=== PATIENT | female | born 1940 | race Caucasian/White ===

== ENCOUNTER 2016-09-23 23:15 | Emergency (ER) | payer MEDICARE ==
[~2016-09-23] VITALS: Ht 160 cm; Wt 71.0 kg
[~2016-09-23 23:15] MED LIST: ALLO100T PO; BACT800T5 PO; GLIM4TAB PO; GLUCTAB PO; HYDR-2768 PO; K-TA10TA5 PO; LISI-363 PO; PRAV20 PO; PROT40TA PO
[2016-09-23 23:33] VITALS: BP 122/67; PULSE 108; RESP 18; TEMP 97.6; O2SAT 99
[2016-09-24] MEDS ORDERED: PRAV40TA2 PO (00:10)
[2016-09-24] MEDS ORDERED: K-TA10TA PO (00:10)
[2016-09-24] MEDS ORDERED: PROT40TA PO (00:10)
[2016-09-24] MEDS ORDERED: ALLO100T PO (00:10)
[2016-09-24] MEDS ORDERED: METF-382 PO (00:10)
[2016-09-24] MEDS ORDERED: LISI-515 PO (00:10)
[2016-09-24] MEDS ORDERED: GLIM4TAB PO (00:10)
[2016-09-24] MEDS ORDERED: FISHCAP4 PO (00:10)
[2016-09-24] MEDS ORDERED: BACT800T5 PO (00:33)
[2016-09-24] MEDS ORDERED: DOXY100C PO (00:33)
--- NOTE | 2016-09-24 00:34 | PD ---
HPI Chief Complaint: Skin Problem Time Seen by Provider: 00:24 Travel History International Travel<30 days: No Contact w/Intl Traveler<30days: No Traveled to known affect area: No History of Present Illness HPI The patient is a 76-year-old female that 10 days ago and got scraped when gardening on her right lower leg. Several days later she began noticing redness on her right ankle area. She is a diabetic and today her sugar was 136. She denies any fever. PFSH Past Medical History Arthritis: Yes Blood Disorders: No Depression: Yes Cancer: No Cardiovascular Problems: Yes High Cholesterol: Yes Diabetes: Yes (DM II) Diminished Hearing: No Endocrine: Yes GERD: Yes Glaucoma: No Genitourinary: No Hepatitis: Yes (HEPATITIS A) Hiatal Hernia: Yes (GERD) Hypertension: Yes Immune Disorder: No Kidney Stones: Yes Musculoskeletal: Yes Neurologic: No Psychiatric: No Reproductive: No Respiratory: No Thyroid Disease: No Menopausal: Yes Past Surgical History Abdominal Surgery: Yes (CHOLECYSTECTOMY) Cholecystectomy: Yes Gynecologic Surgery: Yes (HYSTERECTOMY) Hysterectomy: Yes (PARTIAL) Pacemaker: No Tonsillectomy: Yes Other Surgery: Yes (BILATERAL FEET SPUR REMOVAL) Social History Alcohol Use: No Tobacco Use: No Substance Use: No Allergies-Medications (Allergen,Severity, Reaction): Coded Allergies: No Known Allergies (Verified , 09/24/16) Reported Meds & Prescriptions Reported Meds & Active Scripts Active Bactrim DS (Sulfamethoxazole-Trimethoprim DS) 1 Tab Tab 1 Tab PO BID Reported Fish Oil + D3 (Fish Oil-Cholecalciferol) 1,200-1,000 Mg-Unit Cap 1 Cap PO BID Pravastatin 40 Mg Tab 60 Mg PO DAILY K-Tab (Potassium Chloride) 10 Meq Tab 10 Meq PO DAILY Protonix (Pantoprazole Sodium) 40 Mg Tab 40 Mg PO DAILY Metformin ER (Metformin HCl) 1,000 Mg Rell 1,000 Mg PO BID With evening meal Lisinopril 20 Mg Tab 20 Mg PO DAILY Glimepiride 4 Mg Tab 4 Mg PO BIDAC Allopurinol 100 Mg Tab 100 Mg PO DAILY Protonix (Pantoprazole Sodium) 40 Mg Tabdr 40 Mg PO DAILY Allopurinol 100 Mg Tab 100 Mg PO DAILY Lisinopril 20 mg (Lisinopril) 20 Mg Tab 1 Tab PO DAILY Glimepiride 4 Mg Tab 4 Mg PO BID K-Tabs (Potassium Chloride) 10 Meq Tab 10 Meq PO DAILY Pravastatin Sodium 20 Mg Tab 60 Mg PO DAILY Hctz (Hydrochlorothiazide) 25 Mg Tab 25 Mg PO DAILY Glucophage XR 24 HR (Metformin HCl) 500 Mg Tab 1,000 Mg PO BID Review of Systems Except as stated in HPI: all other systems reviewed are Neg Physical Exam Narrative GENERAL: The patient is alert, oriented 3 and moderate apparent distress with her right ankle discomfort. Her vital signs show heart rate of 108 but are otherwise normal. SKIN: Focused skin assessment warm/dry. There is a cellulitis around the right ankle about 20 x 10 cm in diameter. No abscess is seen. No lymphadenitis is noted. HEAD: Atraumatic. Normocephalic. EYES: Pupils equal and round. No scleral icterus. No injection or drainage. ENT: No nasal bleeding or discharge. Mucous membranes pink and moist. NECK: Trachea midline. No JVD. CARDIOVASCULAR: Regular rate and rhythm. No murmur appreciated. RESPIRATORY: No accessory muscle use. Clear to auscultation. Breath sounds equal bilaterally. GASTROINTESTINAL: Abdomen soft, non-tender, nondistended. Hepatic and splenic margins not palpable. MUSCULOSKELETAL: No obvious deformities. No clubbing. No cyanosis. No edema. NEUROLOGICAL: Awake and alert. No obvious cranial nerve deficits. Motor grossly within normal limits. Normal speech. PSYCHIATRIC: Appropriate mood and affect; insight and judgment normal. Data Data Last Documented VS Vital Signs Date Time Temp Pulse Resp B/P Pulse Ox O2 Delivery O2 Flow Rate FiO2 09/23/16 23:33 97.6 108 18 122/67 99 MDM Medical Decision Making Medical Screen Exam Complete: Yes Emergency Medical Condition: Yes Medical Record Reviewed: Yes Differential Diagnosis Cellulitis right lower leg, allergic reaction, contact dermatitis, necrotizing fasciitishighly unlikely Narrative Course The patient has a cellulitis right lower leg. The infectious process as far too slow and does not appear as necrotizing fasciitis. Diagnosis Primary Impression: Cellulitis of right lower leg Additional Instructions: Both antibiotics are taken one tablet twice daily for 10 days. It will take 2- 3 days for the antibiotics to start working. Elevation is extremely important, elevate the area above your heart. Follow-up with her primary care physician next week. A heating pad turned on its lowest setting and interposing a towel between your skin and the pad is also useful in bringing blood to the area. Med/Other Pt SpecificInfo: Prescription(s) given Scripts Sulfamethoxazole-Trimethoprim (Bactrim DS)800-160 Mg Tab1 Tab PO BID #20 TAB Ref 0 Prov:Haider Aaron MD 09/24/16 Doxycycline Hyclate 100 Mg [id number] Mg PO BID #20 CAP Ref 0 Prov:Haider Aaron MD 09/24/16 Disposition: 01 DISCHARGE HOME Condition: Stable Haider Aaron MD Sep 24, 2016 00:34
[2016-09-24] MEDS ORDERED: DOXYCYCLINE HYCLATE 100 MG CAP PO ONE (00:45)
[2016-09-24] MEDS ORDERED: SULFAMETHOXAZOLE-TRIMETHOPRIM DS 800-160 MG TAB PO ONE (00:45)
[2016-09-24] MEDS ORDERED: TETANUS/DIPHTHERIA TOXOID ADULT 0.5 ML VIAL IM ONE (00:45)
== END 2016-09-24 01:03 | disposition home or self-care (01) ==
LOC: PHED 23:15
DX: L03.115 Cellulitis of right lower limb (principal); E11.9 Type 2 diabetes mellitus without complications; M19.90 Unspecified osteoarthritis, unspecified site; F32.9 Major depressive disorder, single episode, unspecified; E78.00 Pure hypercholesterolemia, unspecified; K21.9 Gastro-esophageal reflux disease without esophagitis; I10 Essential (primary) hypertension; Z79.899 Other long term (current) drug therapy; Z23 Encounter for immunization
CPT/HCPCS: 90471; 90714

== ENCOUNTER → 2016-12-14 | Outpatient (CLI) | payer MEDICARE ==
[~2016-12-14] VITALS: Ht 160 cm; Wt 67.0 kg
[~2016-12-14] MED LIST changes: +BENZOCAINE 20% ORAL SPR 60 ML CAN OROPHARYNG ONE; +DOXY100C PO; +FISHCAP4 PO; +GABA300C5 PO; +HYDR-3516 PO; +HYDR25TA5 PO; +K-TA10TA PO; +LIDOCAINE HCL 2% 100 MG/5 ML SYRINGE OTHER ONE; +LISI-515 PO; +METF-382 PO; +PRAV20TA2 PO; +PRAV40TA2 PO
[2016-12-14 07:23] VITALS: BP 159/70; PULSE 98; RESP 16; TEMP 97.1; O2SAT 100
== END ==
LOC: HSDC 06:49
PROVIDERS: ATTEND Internal Medicine Gastroenterology
DX: R11.0 Nausea (principal)
CPT/HCPCS: 91010

== ENCOUNTER 2017-01-27 10:19 | Observation (INO) | payer MEDICARE ==
[~2017-01-27] VITALS: Ht 160 cm; Wt 68.0 kg
[~2017-01-27 10:19] MED LIST changes: -BENZOCAINE 20% ORAL SPR 60 ML CAN OROPHARYNG ONE; -GABA300C5 PO; -HYDR-3516 PO; -HYDR25TA5 PO; -LIDOCAINE HCL 2% 100 MG/5 ML SYRINGE OTHER ONE; -PRAV20TA2 PO
[2017-01-27] MEDS ORDERED: METOPROLOL TARTRATE 25 MG TAB PO PRN (11:15)
[2017-01-27] MEDS ORDERED: INSULIN HUMAN REGULAR 1,000 UNITS/10 ML VIAL SQ PRN (11:15)
[2017-01-27] MEDS ORDERED: POVIDONE IODINE 5% (ANTISEPSIS KIT) 4 APPLICATIONS EACH NARE PRN (11:15)
[2017-01-27] MEDS ORDERED: ACETAMINOPHEN 1000 MG/100 ML 100 ML IV SCH (11:15)
[2017-01-27] MEDS ORDERED: SODIUM CHLORID 0.9% 500 ML IV PRN (11:15)
[2017-01-27] MEDS ORDERED: CHLORHEXIDINE GLUCONATE 2 % 1 PACK (2 CLOTHS) TOPICAL PRN (11:15)
[2017-01-27] MEDS ORDERED: LACTATED RINGER'S 1000 ML IV PRN (11:15)
[2017-01-27] MEDS ORDERED: HYDR25TA5 PO (11:22)
[2017-01-27] MEDS ORDERED: PRAV20TA2 PO (11:22)
[2017-01-27] MEDS ORDERED: GABA300C5 PO (11:54)
[2017-01-27] MEDS ORDERED: NORMOSOL R INJ 1,000 ML IV ONE (12:00)
[2017-01-27] MEDS ORDERED: ESMOLOL HCL 100 MG/10 ML VIAL IV ONE (12:00)
[2017-01-27] MEDS ORDERED: DEXAMETHASONE SOD PHOS 4 MG/ML VIAL IV ONE (12:00)
[2017-01-27] MEDS ORDERED: ROCURONIUM INJ 50 MG/5 ML VIAL IV ONE (12:00)
[2017-01-27] MEDS ORDERED: SUCCINYLCHOLINE CHLORIDE 100 MG/5 ML SYRINGE IV PUSH ONE (12:00)
[2017-01-27] MEDS ORDERED: STERILE WATER FOR INJECTION 20 ML VIAL IV ONE (12:00)
[2017-01-27] MEDS ORDERED: ONDANSETRON HCL 4 MG/2 ML VIAL IV PUSH ONE (12:00)
[2017-01-27] MEDS ORDERED: PROPOFOL 200 MG/20 ML AMP IV ONE (12:00)
[2017-01-27] MEDS ORDERED: GLYCOPYRROLATE 1 MG/5 ML SYRINGE IV PUSH ONE (12:00)
[2017-01-27] MEDS ORDERED: MORPHINE SULFATE 4 MG/ML INJ IV ONE (12:00)
[2017-01-27] MEDS ORDERED: VECURONIUM BROMIDE 20 MG VIAL IV ONE (12:00)
[2017-01-27] MEDS ORDERED: NEOSTIGMINE 3 MG/3 ML SYR IV ONE (12:00)
[2017-01-27] MEDS ORDERED: PHENYLEPHRINE HCL 10 MG/ML VIAL IV ONE (12:00)
[2017-01-27] MEDS ORDERED: PHENYLEPH/NS 1000 MCG/10 ML SYR IV ONE (12:00)
[2017-01-27] MEDS ORDERED: KETOROLAC TROMETHAMINE 30 MG/ML (IVP) VIAL IV PUSH ONE (12:00)
[2017-01-27] MEDS ORDERED: MIDAZOLAM HCL 2 MG/2 ML VIAL IV ONE (12:00)
[2017-01-27] MEDS ORDERED: LACTATED RINGER'S 1000 ML INJ 1,000 ML IV ONE (12:00)
[2017-01-27] MEDS: ceFAZolin 2 GM PREMIX 50 ML IV SCH ×2 (12:37→16:34)
[2017-01-27] MEDS ORDERED: BUPIVACAINE/EPINEPHRINE 0.25% 50 ML VIAL ONE (15:02)
[2017-01-27] MEDS ORDERED: ACETAMINOPHEN 1000 MG/100 ML 100 ML IV ONE (17:49)
[2017-01-27] MEDS ORDERED: NALOXONE HCL 0.4 MG/ML AMP IV PUSH PRN (18:45)
[2017-01-27] MEDS ORDERED: ACETAMINOPHEN/HYDROcodone 325 MG/5 MG TAB PO PRN (18:45)
[2017-01-27] MEDS ORDERED: MORPHINE SULFATE 4 MG/ML INJ IV PUSH PRN (18:45)
[2017-01-27] MEDS ORDERED: diphenhydrAMINE HCL 50 MG/ML VIAL IV PUSH PRN (18:45)
[2017-01-27] MEDS ORDERED: Post-op Orders (for Pharmacy) MISC XX ONE (18:45)
[2017-01-27] MEDS ORDERED: ONDANSETRON HCL 4 MG/2 ML VIAL IV PUSH PRN (18:45)
[2017-01-27] MEDS ORDERED: SODIUM CHLORIDE 0.9% FLUSH 10 ML FLUSH IV FLUSH PRN (18:45)
[2017-01-27] MEDS: LACTATED RINGER'S 1000 ML INJ 1,000 ML IV SCH (19:00)
[2017-01-27] MEDS ORDERED: *morphine SULFATE 8 MG/ML PERIprocedure ONLY ONE ×3 (19:01→19:41)
[2017-01-27] MEDS ORDERED: *ONDANSETRON 4 MG VIAL PERIprocedural Use ONLY ONE (19:01)
[2017-01-27] MEDS ORDERED: *PROMETHAZINE 25 MG/ML VIAL PERIprocedural use ONLY ONE (19:22)
[2017-01-27] MEDS ORDERED: INSULIN ASPART 1,000 UNITS/10 ML VIAL SQ ONE (19:30)
[2017-01-27] MEDS ORDERED: DO NOT ADM ANY ANTICOAGULANT DRUGS PRN (19:30)
[2017-01-27] MEDS: PANTOPRAZOLE SODIUM 40 MG VIAL IV PUSH SCH (20:00)
[2017-01-27] MEDS: SODIUM CHLORIDE 0.9% FLUSH 10 ML FLUSH IV FLUSH SCH (20:08)
[2017-01-27] MEDS: GABAPENTIN 300 MG CAP PO SCH (20:08)
[2017-01-27] MEDS: ACETAMINOPHEN/HYDROcodone 325 MG/10 MG TAB PO PRN (20:17)
[2017-01-27 20:25] VITALS: BP 114/56; PULSE 92; RESP 18; TEMP 95.8; O2SAT 93
[2017-01-28] VITALS (7 sets, daily range): BP systolic 102–149; BP diastolic 55–64; PULSE 92–110; RESP 16–18; TEMP 96.4–97.1; O2SAT 94–99
[2017-01-28] MEDS: LACTATED RINGER'S 1000 ML INJ 1,000 ML IV SCH ×2 (03:29→07:24)
[2017-01-28] MEDS: ACETAMINOPHEN/HYDROcodone 325 MG/10 MG TAB PO PRN ×3 (03:43→19:51)
[2017-01-28 08:20] LABS: AUTOMATED NEUTROPHIL # 6.6 TH/MM3 (1.8-7.7); BASOPHIL % 0.2 % (0.0-2.0); EOSINOPHIL % 0.1 % (0.0-4.0); HEMATOCRIT 30.8 % (35.0-46.0); HEMO FLAGS DIFF FINAL; LYMPH % 18.2 % (9.0-44.0); LYMPHOCYTE # 1.7 TH/MM3 (1.0-4.8); MEAN CELL VOLUME 83.5 FL (80.0-100.0); MEAN CORPUSCULAR HEMOGLOBIN 28.2 PG (27.0-34.0); MEAN CORPUSCULAR HGB CONC 33.8 % (32.0-36.0); MONO % 8.5 % (0.0-8.0); PLATELET COUNT 216 TH/MM3 (150-450); RED BLOOD COUNT 3.68 MIL/MM3 (4.00-5.30); RED CELL DISTRIBUTION WIDTH 14.2 % (11.6-17.2); WHITE BLOOD COUNT 9.1 TH/MM3 (4.0-11.0)
[2017-01-28 08:31] LABS: BICARBONATE 25.7 MEQ/L (21.0-32.0); POTASSIUM 4.3 MEQ/L (3.5-5.1)
[2017-01-28] MEDS: ALLOPURINOL 100 MG TAB PO SCH (09:00)
[2017-01-28] MEDS: HYDROCHLOROTHIAZIDE 25 MG TAB PO SCH (10:26)
[2017-01-28] MEDS: metFORMIN HCL 500 MG TAB PO SCH ×2 (10:26→18:00)
[2017-01-28] MEDS: LISINOPRIL 20 MG TAB PO SCH (10:27)
[2017-01-28] MEDS: SODIUM CHLORIDE 0.9% FLUSH 10 ML FLUSH IV FLUSH SCH ×2 (10:30→19:49)
[2017-01-28] MEDS ORDERED: HYDR-3516 PO (12:10)
--- NOTE | 2017-01-28 16:24 | HHI.PR ---
Subjective Subjective Notes She is doing well. Tolerated fulls for lunch. No nausea. Pain controlled with pills. She has been ambulating. Objective Vitals/I&O Vital Signs Date Time Temp Pulse Resp B/P (MAP) Pulse Ox O2 Delivery O2 Flow Rate FiO2 01/28/17 13:33 94 Nasal Cannula 2.00 01/28/17 12:00 97.1 95 17 123/55 (77) Labs Laboratory Tests Test 01/28/17 07:03 White Blood Count 9.1 Red Blood Count 3.68 Hemoglobin 10.4 Hematocrit 30.8 Mean Corpuscular Volume 83.5 Mean Corpuscular Hemoglobin 28.2 Mean Corpuscular Hemoglobin Concent 33.8 Red Cell Distribution Width 14.2 Platelet Count 216 Mean Platelet Volume 9.0 Neutrophils (%) (Auto) 73.0 Lymphocytes (%) (Auto) 18.2 Monocytes (%) (Auto) 8.5 Eosinophils (%) (Auto) 0.1 Basophils (%) (Auto) 0.2 Neutrophils # (Auto) 6.6 Lymphocytes # (Auto) 1.7 Monocytes # (Auto) 0.8 Eosinophils # (Auto) 0.0 Basophils # (Auto) 0.0 CBC Comment DIFF FINAL Differential Comment Blood Urea Nitrogen 23 Creatinine 0.95 Random Glucose 117 Calcium Level 8.0 Sodium Level 137 Potassium Level 4.3 Chloride Level 102 Carbon Dioxide Level 25.7 Anion Gap 9 Estimat Glomerular Filtration Rate 57 Narrative Exam NAD Abd: soft, mild distention, inc c/d/i A/P Assessment and Plan 76 yo F POD 1 s/p robot assisted hiatal hernia repair, partial fundoplication Doing well postop. D/c home. Full liquid diet. Rx for lortab. Activity- no heavy lifting. F/u in two weeks. Stable condition. Perico Bowers MD Jan 28, 2017 16:24
[2017-01-28] MEDS: GABAPENTIN 300 MG CAP PO SCH (19:48)
[2017-01-28] MEDS: PANTOPRAZOLE SODIUM 40 MG VIAL IV PUSH SCH (19:49)
[2017-01-29 00:18] VITALS: BP 140/63; PULSE 104; RESP 18; TEMP 96.4; O2SAT 96
[2017-01-29] MEDS: ACETAMINOPHEN/HYDROcodone 325 MG/10 MG TAB PO PRN ×2 (00:23→05:17)
[2017-01-29 08:00] VITALS: BP 130/60; PULSE 119; RESP 17; TEMP 97.8; O2SAT 94
[2017-01-29] MEDS: HYDROCHLOROTHIAZIDE 25 MG TAB PO SCH (08:46)
[2017-01-29] MEDS: ALLOPURINOL 100 MG TAB PO SCH (08:47)
[2017-01-29] MEDS: LISINOPRIL 20 MG TAB PO SCH (08:47)
[2017-01-29] MEDS: metFORMIN HCL 500 MG TAB PO SCH (08:47)
[2017-01-29] MEDS: SODIUM CHLORIDE 0.9% FLUSH 10 ML FLUSH IV FLUSH SCH (08:47)
--- NOTE | 2017-02-24 21:19 | PD.OP ---
cc: Perico Bowers MD Operative Report Date of Surgery: Feb 24, 2017 Preoperative Diagnosis: (1) Hiatal hernia (2) GERD (gastroesophageal reflux disease) Postoperative Diagnosis: (1) Hiatal hernia (2) GERD (gastroesophageal reflux disease) Procedure: Robotic-assisted laparoscopic hiatal hernia repair and 270 posterior fundoplication Anesthesia: MARIO Surgeon: Perico Bowers Sustainability Purchasing Agent(s): Tremayne Bardales CFA Operation and Findings: EBL: 20 cc Operative findings: The patient had a moderate sized hiatal hernia. 270 posterior fundoplication was performed. Procedure in detail: The patient was taken to the operating room placed in supine position. General endotracheal anesthesia was induced and the abdomen was prepped and draped in usual sterile fashion. A surgical timeout performed to verify correct patient procedure and site. Local anesthetic was injected in the skin and subcutaneous tissue and epigastrium 15 cm inferior to the umbilicus and a 12 mm incision created. A 5 mm trocar was inserted directly using the laparoscope and the abdomen then insufflated to 15 mmHg with CO2 gas. An 8 mm robotic trocar placed in the left upper abdomen midclavicular line and a 5 mm trocar placed in the left lateral mid abdomen. A robotic 8 mm trocar was placed in the right upper abdomen and a 5 mm trocar in the right lateral abdomen. The patient was positioned in Trendelenburg position. The epigastric port was changed to a 12 mm port. The south flex liver retractor was used to elevate the left lateral lobe of the liver and expose the hiatus. At this point the da Ashley robot was docked with the camera placed at the 12 mm epigastric port arm 1 in the right upper abdomen and arm two in the left upper abdomen. The stomach was retracted caudally and the pars flaccida of the gastrohepatic ligament divided to expose the right michael of the diaphragm. The plane between the right michael of the diaphragm and the herniated stomach was developed and the peritoneal incision extended over the hiatus. Posteriorly the dissection was extended until the left michael and echo sedation was apparent. Circumferential dissection of the herniated stomach was performed and the Zach drain was carefully placed circumferentially to provide a traumatic downward traction. The hernia sac was carefully from the mediastinal structures using the Harmonic scalpel until the entire stomach was contained within the abdominal cavity with no tension. This was a moderate to large size hiatal hernia. Care was taken to avoid the anterior and posterior vagus nerves. The hiatus was enlarged and was therefore closed with 0 silk sutures to reapproximate the crura. Attention was then turned to creation of the fundoplication. The upper one third of the short gastric vessels were divided with Harmonic scalpel to mobilize the fundus. A shoeshine technique was used to bring the fundus posteriorly for a 270 posterior wrap. Each side of the fundoplication was was secured superiorly to the hiatus with 3-0 silk suture. Multiple simple interrupted 3-0 silk sutures were placed to secure the wrap to the esophagus. There was now a loose 270 fundoplication. Hemostasis was ensured. The liver retractor was removed under direct visualization. Ports were then removed and the abdomen allowed to desufflate. The 12 mm fascial site was closed with 0 Vicryl suture. Skin closed with subcuticular 4-0 Monocryl and Dermabond. The patient tolerated the procedure well and was extubated and taken to PACU in stable condition. Perico Bowers MD Feb 24, 2017 21:19
== END 2017-01-29 09:15 | disposition home or self-care (01) ==
LOC: HSDI 10:19 → INTOOBSV 10:19 → N07B 19:58
PROVIDERS: ADMIT Surgery; ATTEND Surgery
DX: K44.9 Diaphragmatic hernia without obstruction or gangrene (principal); K21.9 Gastro-esophageal reflux disease without esophagitis; I10 Essential (primary) hypertension; E11.9 Type 2 diabetes mellitus without complications
CPT/HCPCS: 00790; 43281; 80048; 82948; 85025; 94150; C9113; G0378; J0131; J0330; J0690; J1100; J1815; J1885; J2250; J2270; J2370; J2405; J2550; J2710; J3010; J7120

== ENCOUNTER 2018-02-18 05:17 | Observation (INO) ==
[2018-02-18] MEDS ORDERED: Pantoprazole Inj 40 MG Vial IV.PUSH ONE (05:34)
--- NOTE | 2018-02-18 05:35 | ED ---
HPI General Chief Complaint: Nausea/Vomiting/Diarrhea Stated Complaint: Lightheaded,nausea x 1 day Time Seen by Provider: 02/18/18 05:31 Source: patient Mode of arrival: ambulatory Limitations: no limitations History of Present Illness HPI Narrative: 77-year-old female with history of anxiety hypertension dyslipidemia dyslipidemia and diabetic neuropathy presents to the emergency department by private transportation the care of her friend for evaluation of severe nausea and substernal subxiphoid discomfort. Patient also complains of dizziness. Patient has history of hiatal hernia and states symptoms are similar. Patient states symptoms of dizziness and nausea have been present yesterday morning around 9 AM. Patient states as they progressed she was seen by her change management coordinator and given prescription for Keflex which she started in by 5 PM had severe nausea states that she could not eat any food. Patient states nausea has kept her awake all night and finally she attempted to drink some Gatorade but she vomited this and decided to come to the emergency room. Patient does not report any upper extremity lower extremity numbness tingling or weakness. Patient states she has been intermittently off balance. Patient states that she has no history of coronary vessel disease. No reported febrile illness but was recently started on antibiotic by her change management coordinator for lower leg cellulitis. MD complaint: Reports dizziness and other (nausea vomiting) Onset (ago): hour(s) Time: 09:00 Timing: gradual onset Description: Reports lightheadedness and off-balance (intermittently) History of similar episodes: No History of trauma: No Severity: similar to previous episodes Relieving factors: nothing Exacerbating factors: movement and other (eating) Associated symptoms: Reports chest pain, weakness, nausea and vomiting; Denies confusion, diaphoresis, fever, chills, malaise, rash, shortness of breath, syncope and vision changes Related Data Home Medications Medication Instructions Recorded Confirmed baclofen 20 mg PO DAILY 02/18/18 02/18/18 bethanechol chloride 25 mg PO TID 02/18/18 02/18/18 diazepam 2 mg PO BID 02/18/18 02/18/18 escitalopram oxalate 20 mg PO DAILY 02/18/18 02/18/18 hydrochlorothiazide 25 mg PO DAILY 02/18/18 02/18/18 lisinopril 20 mg PO DAILY 02/18/18 02/18/18 pantoprazole 40 mg PO DAILY 02/18/18 02/18/18 potassium chloride 10 meq PO DAILY 02/18/18 02/18/18 pravastatin 40 mg PO DAILY 02/18/18 02/18/18 ranitidine HCl 300 mg PO DAILY 02/18/18 02/18/18 tamsulosin 0.4 mg PO DAILY 02/18/18 02/18/18 Allergies Allergy/AdvReac Type Severity Reaction Status Date / Time No Known Allergies Allergy Uncoded 09/24/16 00:06 Review of Systems ROS: all other systems reviewed are negative PMFSH History History Provided By: Patient Medical History Medical History Diabetes (Acute) Hyperlipemia (Acute) Hypertension (Acute) Surgical History Surgical History H/O shoulder surgery (Acute) Social History Social History Substance History: No History of Abuse Second Hand Smoke Exposure: No Smoking Status: Never smoker How Often Do You Have a Drink Containing Alcohol: Never Recent Travel in [facility] within the Last 8 Weeks: No Recent Out of Country Travel within the Last 8 Weeks: No Exam Narrative Exam Narrative: GENERAL: Well-developed well-nourished elderly female no acute distress no respiratory distress GCS 15 SKIN: Focused skin assessment warm/dry. HEAD: Atraumatic. Normocephalic. EYES: Pupils equal and round. No scleral icterus. No injection or drainage. ENT: No nasal bleeding or discharge. Mucous membranes pink and moist. NECK: Trachea midline. No JVD. CARDIOVASCULAR: Regular rate and rhythm. No murmur appreciated. RESPIRATORY: No accessory muscle use. Clear to auscultation. Breath sounds equal bilaterally. GASTROINTESTINAL: Abdomen soft, non-tender, nondistended. Hepatic and splenic margins not palpable. MUSCULOSKELETAL: No obvious deformities. No clubbing. No cyanosis. No edema. Erythema left lower extremity anterior aspect to palpation no fluctuance. NEUROLOGICAL: Awake and alert. No obvious cranial nerve deficits. Motor grossly within normal limits. Normal speech. PSYCHIATRIC: Appropriate mood and affect; insight and judgment normal. Course Initial Documented Vital Signs Temperature 97.7 F 02/18/18 05:19 Pulse Rate 114 H 02/18/18 05:19 Respiratory Rate 18 10/26/18 05:19 Blood Pressure 167/79 H 02/18/18 05:19 Pulse Oximetry 97 02/18/18 05:19 Last Documented Vital Signs Temperature 97.7 F 02/18/18 05:19 Pulse Rate 112 H 02/18/18 05:32 Respiratory Rate 16 02/18/18 05:34 Blood Pressure 167/77 H 02/18/18 05:38 Pulse Oximetry 98 02/18/18 05:36 Medical Decision Making MDM Narrative Medical decision making narrative: Bedside glucose is 175; patient placed on monitoring and evaluation advisor IV access obtained specimens collected and sent for resulting patient given 250 bolus of normal saline maintenance fluids of normal saline [address] brain noncontrast ordered EKG ordered blood work ordered patient given Zofran 4 mg IV Patient given bolus of IV fluids repeat dosing of Zofran and Reglan for control of nausea patient pain-free after sublingual nitroglycerin CT brain shows evidence of sinusitis Lab values grossly within normal limits specifically cardiac enzymes are within normal range Patient with multiple issues however primary issue appears to be related to her chest pain epigastric pain/pressure associated with severe nausea; patient's risk factor profile for cardiac disease is hypertension diabetes high cholesterol and age of 77. Patient denies any previous evaluation for cardiac disease. Patient had resolution of chest pain after sublingual nitroglycerin. Patient now has control of her nausea. Plan will be to admit patient to chest pain center per protocol patient is already on Keflex regarding the cellulitis of her left lower leg and is under the care of podiatry for this patient has age -indeterminate sinusitis. Patient has a normal neurologic exam no focality on neurologic exam CT brain noncontrast reveals no acute process. Patient's symptoms and present since yesterday morning intermittently with escalation overnight and this morning. Patient's case discussed with on-call medicine service for chest pain center protocol subsequent issues I think can be addressed by her primary care provider as an outpatient. Case discussed with Dr. Rushing who is accepted patient for chest pain center protocol Medical Screen Exam Complete: Yes Emergency Medical Condition: Yes Differential Diagnosis Differential Diagnosis: Dizziness, TIA, CVA, arrhythmia, chest pain, ACS, ID, hiatal hernia, adverse medication reaction, dissection, gastritis peptic ulcer disease pancreatitis aneurysm, partially treated LLE cellulitis Medical Records Medical records reviewed: Yes I reviewed the patient's medical records. Lab Data Lab results reviewed: Yes I reviewed the patient's lab results. Result diagrams: 02/18/18 05:36 02/18/18 05:36 Lab Results 02/18/18 02/18/18 02/18/18 Range/Units 05:34 05:36 05:36 CBC w Diff Auto diff final WBC 8.3 (4.0-11.0) th/mm3 RBC 4.15 (4.00-5.30) mil/mm3 Hgb 11.9 (11.6-15.3) gm/dL Hct 34.5 L (35.0-46.0) % MCV 83.3 (80.0-100.0) fL MCH 28.8 (27.0-34.0) pg MCHC 34.6 (32.0-36.0) % RDW 13.4 (11.6-17.2) % Plt Count 419 (150-450) th/mm3 MPV 9.6 (7.0-11.0) fL Neut % (Auto) 72.9 H (16.0-70.0) % Lymph % (Auto) 22.2 (9.0-44.0) % [place] % (Auto) 4.1 (0.0-8.0) % Eos % (Auto) 0.3 (0.0-4.0) % Baso % (Auto) 0.5 (0.0-2.0) % Neut # (Auto) 6.1 (1.8-7.7) th/mm3 Lymph # (Auto) 1.9 (1.0-4.8) th/mm3 [place] # (Auto) 0.3 (0.0-0.9) th/mm3 Eos # (Auto) 0.0 (0.0-0.4) th/mm3 Baso # (Auto) 0.0 (0.0-0.2) th/mm3 WBC Differential . Differential Comment . PT (9.8-11.6) sec INR Ratio APTT (24.3-30.1) sec Sodium (136-145) meq/L Potassium (3.5-5.1) meq/L Chloride (98-107) meq/L Carbon Dioxide (21.0-32.0) meq/L Anion Gap (5-15) meq/L BUN (7-18) mg/dL Creatinine (0.50-1.00) mg/dL Estimated GFR (>89) mL/min POC Glucose 175 H (68-110) mg/dl Random Glucose (74-106) mg/dL Calcium (8.5-10.1) mg/dL Magnesium (1.5-2.5) mg/dL Total Bilirubin (0.2-1.0) mg/dL AST (15-37) U/L ALT (10-53) U/L Alkaline Phosphatase (45-117) U/L Total Creatine Kinase (26-192) U/L Troponin I (0.02-0.05) ng/mL Total Protein (6.4-8.2) g/dL Albumin (3.4-5.0) g/dL Lipase 230 (73-393) U/L 02/18/18 02/18/18 Range/Units 05:36 05:36 CBC w Diff WBC (4.0-11.0) th/mm3 RBC (4.00-5.30) mil/mm3 Hgb (11.6-15.3) gm/dL Hct (35.0-46.0) % MCV (80.0-100.0) fL MCH (27.0-34.0) pg MCHC (32.0-36.0) % RDW (11.6-17.2) % Plt Count (150-450) th/mm3 MPV (7.0-11.0) fL Neut % (Auto) (16.0-70.0) % Lymph % (Auto) (9.0-44.0) % [place] % (Auto) (0.0-8.0) % Eos % (Auto) (0.0-4.0) % Baso % (Auto) (0.0-2.0) % Neut # (Auto) (1.8-7.7) th/mm3 Lymph # (Auto) (1.0-4.8) th/mm3 [place] # (Auto) (0.0-0.9) th/mm3 Eos # (Auto) (0.0-0.4) th/mm3 Baso # (Auto) (0.0-0.2) th/mm3 WBC Differential Differential Comment PT 10.0 (9.8-11.6) sec INR 1.0 Ratio APTT 23.6 L (24.3-30.1) sec Sodium 134 L (136-145) meq/L Potassium 3.9 (3.5-5.1) meq/L Chloride 99 (98-107) meq/L Carbon Dioxide 24.2 (21.0-32.0) meq/L Anion Gap 11 (5-15) meq/L BUN 30 H (7-18) mg/dL Creatinine 1.20 H (0.50-1.00) mg/dL Estimated GFR 43 L (>89) mL/min POC Glucose (68-110) mg/dl Random Glucose 172 H (74-106) mg/dL Calcium 8.8 (8.5-10.1) mg/dL Magnesium 1.9 (1.5-2.5) mg/dL Total Bilirubin 0.3 (0.2-1.0) mg/dL AST 30 (15-37) U/L ALT 34 (10-53) U/L Alkaline Phosphatase 63 (45-117) U/L Total Creatine Kinase 58 (26-192) U/L Troponin I Less than 0.02 L (0.02-0.05) ng/mL Total Protein 7.9 (6.4-8.2) g/dL Albumin 3.5 (3.4-5.0) g/dL Lipase (73-393) U/L Imaging Data Radiologist's impression: Chest X-Ray 02/18/18 05:32 CONCLUSION: No infiltrates seen. Head CT 02/18/18 05:35 CONCLUSION: 1. No acute findings in the brain. 2. Small air-fluid levels in both maxillary sinuses suggests sinusitis. . ECG Data EKG Prior to Arrival: No Interpretation: EKG: Sinus tachycardia rate 105 left atrial enlargement QS inferiorly age-indeterminate inferior infarct no acute ST elevation injury pattern or ectopy noted Discharge Plan Discharge Disposition Patient Disposition: 30 Still Patient Discharge Condition Condition: Stable Discharge Details Diagnosis: Chest pain, Dizziness, Sinusitis Physicians Team ED Provider: Mariana Saini Primary Care Provider: Zach Cortes Rxs /Orders / Referrals /Forms Prescriptions: No Action potassium chloride 10 mEq Capsule, Extended Release 10 meq PO DAILY RF: 0 pravastatin 40 mg Tablet 40 mg PO DAILY RF: 0 lisinopril 20 mg Tablet 20 mg PO DAILY RF: 0 baclofen 20 mg Tablet 20 mg PO DAILY RF: 0 bethanechol chloride 25 mg Tablet 25 mg PO TID RF: 0 tamsulosin 0.4 mg Capsule 0.4 mg PO DAILY RF: 0 diazepam 2 mg Tablet 2 mg PO BID RF: 0 pantoprazole 40 mg Tablet,Delayed Release (Dr/Ec) 40 mg PO DAILY RF: 0 ranitidine HCl 300 mg Capsule 300 mg PO DAILY RF: 0 hydrochlorothiazide 25 mg Tablet 25 mg PO DAILY RF: 0 escitalopram oxalate 20 mg Tablet 20 mg PO DAILY RF: 0 Discharge Interventions Interventions: Vital Signs Last Done: 02/18/18 05:34 Status ED Status: With Doctor
[2018-02-18] MEDS ORDERED: Sod Chloride 0.9% Inj 1,000 ML IV.CONT SCH ×2 (05:45→07:37)
[2018-02-18] MEDS ORDERED: Sodium Chlor 0.9% Inj 250 ML IV.SIG SCH (06:00)
--- NOTE | 2018-02-18 06:08 | XR ---
EXAM DATE: 02/18/2018 5:54 AM EDT AGE/SEX: 77 years / Female INDICATIONS: Chest discomfort. Nausea and lightheaded for one day. CLINICAL DATA: This is the patient's initial encounter. Patient reports that signs and symptoms have been present for 2 days and indicates a pain score of 0/10. MEDICAL/SURGICAL HISTORY: Diabetes. Hypertension. Hyperlipemia . Shoulder surgery. Hernia rep air. COMPARISON: [facility], CHEST SINGLE AP, 10/31/2015. . FINDINGS: A single AP view of the chest demonstrates the lungs to be symmetrically aerated without evidence of mass, infiltrate or effusion. Incidental note of azygous lobe. The cardiomediastinal contours are un remarkable. Stable appearance to the old fracture proximal right humerus. CONCLUSION: No infiltrates seen. Electronically signed by: Kyler Yang MD 02/18/2018 6:07 AM EDT
[2018-02-18 06:13] LABS: Chloride 99 meq/L (98-107); Potassium 3.9 meq/L (3.5-5.1); Sodium 134 meq/L (136-145)
[2018-02-18 06:16] LABS: Calcium 8.8 mg/dL (8.5-10.1)
[2018-02-18 06:17] LABS: Activated Partial Thrombo Time 23.6 sec (24.3-30.1); Albumin 3.5 g/dL (3.4-5.0); Anion Gap 11 meq/L (5-15); Blood Urea Nitrogen 30 mg/dL (7-18); Carbon Dioxide 24.2 meq/L (21.0-32.0); Glucose,Random 172 mg/dL (74-106); Magnesium 1.9 mg/dL (1.5-2.5)
--- NOTE | 2018-02-18 06:18 | CT ---
EXAM DATE: 02/18/2018 6:14 AM EDT AGE/SEX: 77 years / Female INDICATIONS: Nausea, lightheadedness for one day. CLINICAL DATA: This is the patient's initial encounter. Patient reports that signs and symptoms have been present for 1 day and indicates a pain score of 5/10. MEDICAL/SURGICAL HISTORY: . Diabetes. Hyperlipemia. Hypertension. . Shoulder surgery. RADIATION DOSE: 48.39 CTDI (mGy) COMPARISON: No prior exams available for comparison. TECHNIQUE: CT of the head without contrast. Using automated exposure control and adjustment of the mA and/or kV according to patient size, radiation dose was kept as low as reasonably achievable to ob tain optimal diagnostic quality images. DICOM format image data is available electronically for revi ew and comparison. FINDINGS: Cerebrum: The ventricles are normal for age. No evidence of midline shift, mass lesion, hemorrhage or acute infarction. 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 No extraaxial fluid colle ctions are seen. Posterior Fossa: The cerebellum and brainstem are intact. The 4th ventricle is midline. The cerebe llopontine angle is unremarkable. Extracranial: The visualized portion of the orbits is intact. Small air-fluid levels are seen in bot h maxillary sinuses. Skull: The calvaria is intact. No evidence of skull fracture. CONCLUSION: 1. No acute findings in the brain. 2. Small air-fluid levels in both maxillary sinuses suggests sinusitis. . Electronically signed by: Kyler Yang MD 02/18/2018 6:16 AM EDT
[2018-02-18 06:19] LABS: Baso % (Auto) 0.5 % (0.0-2.0); Eos % (Auto) 0.3 % (0.0-4.0); Hematocrit 34.5 % (35.0-46.0); Hemoglobin 11.9 gm/dL (11.6-15.3); Lymph # (Auto) 1.9 th/mm3 (1.0-4.8); Lymph % (Auto) 22.2 % (9.0-44.0); Mean Corpuscular HGB Conc 34.6 % (32.0-36.0); Mean Corpuscular Hemoglobin 28.8 pg (27.0-34.0); Mean Corpuscular Volume 83.3 fL (80.0-100.0); Mean Platelet Volume 9.6 fL (7.0-11.0); Mono # (Auto) 0.3 th/mm3 (0.0-0.9); Mono % (Auto) 4.1 % (0.0-8.0); Neut # (Auto) 6.1 th/mm3 (1.8-7.7); Neut % (Auto) 72.9 % (16.0-70.0); Platelet Count 419 th/mm3 (150-450); Red Blood Count 4.15 mil/mm3 (4.00-5.30); Red Cell Distribution Width 13.4 % (11.6-17.2); White Blood Count 8.3 th/mm3 (4.0-11.0)
[2018-02-18 06:20] LABS: Alanine Aminotransferase 34 U/L (10-53); Aspartate Aminotransferase 30 U/L (15-37); Glomerular Filtration Rate 43 mL/min (>89)
[2018-02-18 06:22] LABS: Total Protein 7.9 g/dL (6.4-8.2)
[2018-02-18 06:23] LABS: Alkaline Phosphatase 63 U/L (45-117)
[2018-02-18 06:28] LABS: Creatine Kinase 58 U/L (26-192)
--- NOTE | 2018-02-18 07:13 | CT ---
EXAM DATE: 02/18/2018 7:08 AM EDT AGE/SEX: 77 years / Female INDICATIONS: Epigastric pain. Nausea and vomiting. CLINICAL DATA: This is the patient's initial encounter. Patient reports that signs and symptoms have been present for 1 day and indicates a pain score of 1/10. MEDICAL/SURGICAL HISTORY: Diabetes. Hypertension. None. RADIATION DOSE: 19.33 CTDI (mGy) COMPARISON: No prior exams available for comparison. TECHNIQUE: Multiple contiguous axial images were obtained through the abdomen. Images were obtained using multiple row detector helical technique. Using automated exposure control and adjustment of the mA and/or kV according to patient size, radiation dose was kept as low as reasonably achievable to o btain optimal diagnostic quality images. DICOM format image data is available electronically for rev iew and comparison. FINDINGS: Lung bases are clear. There are degenerative changes of the spine noted with mild convex to the right curvature of the lumbar spine. A pessary is present within the vagina. No pleural or pericardial eff usions. Cholecystectomy clips are identified. There is a large hiatal hernia. Pancreas, adrenal gland s, bilateral kidneys are within normal limits. Urinary bladder is unremarkable. There is moderate div erticulosis of the sigmoid colon. Diverticuli are also seen in the a sending colon and transverse col on. Appendix is normal. No adenopathy or aneurysm. Atherosclerotic calcifications of the aorta and il iac vessels are seen. CONCLUSION: 1. Diverticulosis without diverticulitis. 2. Atherosclerosis. 3. Scoliosis and degenerative changes. Electronically signed by: Elia Monge MD 02/18/2018 7:11 AM EDT
[2018-02-18 07:29] LABS: Bilirubin,Urine Negative (Negative); Clarity,Urine Clear (Clear); Color,Urine Yellow (Yellw/Straw); Glucose,Urine (UA) 500 mg/dL (Negative); Leukocyte Esterase,Urine Moderate (Negative); Nitrite,Urine Negative (Negative); Urobilinogen,Urine 0.2 mg/dL (Less than 2)
[2018-02-18 07:37] LABS: Bacteria,Urine Moderate /hpf; Squamous Epithelial Cell,Urine Greater than 10 /hpf (0-5); WBC,Urine 51-189 /hpf (0-5)
[2018-02-18 08:43] VITALS: O2SAT 98
[2018-02-18 10:41] LABS: Creatine Kinase 53 U/L (26-192)
--- NOTE | 2018-02-18 11:04 | P.HP ---
History of Present Illness Primary Care Physician: Zach Cortes Chief Complaint: Nausea, chest pressure History of Present Illness: 77-year-old female with known history of hypertension, hyperlipidemia , diabetes, hiatal hernia who presented the hospital because of 1 day history of nausea and chest pressure. Patient states that she is in a normal state of health until yesterday morning when she woke up she noticed that she was having some nausea that was persistent throughout the day. Later on the afternoon she started developing chest discomfort which she describes as a pressure type sensation that is 7/10 on pain scale. After he states she had nausea, she denied any vomiting, shortness of breath, dyspnea, diaphoresis. She states that she did have some radiation of discomfort into the left side of her neck. Patient indicates that over the last week she has been having upper respiratory symptoms with cough, congestion. He states that with all the coughing she is noticed that her chest was sore than usual. Patient also has history of hiatal hernia that was repaired. In the symptoms that states she was experiencing with the nausea with the same ones that she had when she had a hiatal hernia. Currently the patient is asymptomatic. Patient did have workup done emergency department and recommended observation chest pain center. Patient states that she has had a stress test done just a little over a year ago prior to her hiatal hernia surgery on January 27, 2017. He indicated that he did a myocardial perfusion study which was negative. - Diagnosis (1) Nausea (2) Chest pain Review of Systems All other systems reviewed negative except as stated in HPI Cardiovascular: Reports chest pain Gastrointestinal: Reports nausea PMFSH - History History Provided By: Patient - Medical History Medical History: Medical History (Last Updated 02/18/18 @ 10:50 by OVIDIO Lowry) Diabetes Hiatal hernia Hyperlipemia Hypertension - Surgical History Surgical History: Surgical History (Last Updated 02/18/18 @ 10:50 by OVIDIO Lowry) H/O shoulder surgery History of left knee surgery History of partial hysterectomy History of repair of hiatal hernia History of tonsillectomy - Family History Family History: Family History (Last Updated 02/18/18 @ 10:52 by OVIDIO Lowry) Mother Family history of hyperlipidemia Father Family history of stroke Family history of leukemia - Tobacco History Second Hand Smoke Exposure: No Tobacco Use In Past 30 Days: No Smoking Status: Never smoker - Alcohol History How Often Do You Have a Drink Containing Alcohol: Never - Substance Use History Substance History: No History of Abuse - Travel History Recent Travel in the [place] Within the Last 8 Weeks: No Recent Travel Out of the Country Within the Last 8 Weeks: No - Immunization History Tetanus Immunization: >5 Years Medications and Allergies Active Medications: Active Medications Sodium Chloride (Ns Inj) 1,000 mls @ 100 mls/hr IV.CONT .Q10H [facility] Last Infusion: 02/18/18 07:00 Dose: Infused Sodium Chloride (Ns Inj) 250 mls @ 0 mls/hr IV.SIG BOLUS [facility] Last Infusion: 02/18/18 06:19 Dose: Infused Sodium Chloride (Ns Inj) 1,000 mls @ 84 mls/hr IV.CONT .[id number] [facility] Last Infusion: 02/18/18 08:38 Dose: 84 mls/hr Nitroglycerin (Nitrostat Sl) 0.4 mg SL Q5M PRN PRN Reason: CHEST PAIN Last Admin: 02/18/18 05:56 Dose: 0.4 mg Nitroglycerin (Nitrostat Sl) 0.4 mg SL Q5M PRN PRN Reason: CHEST PAIN Ondansetron HCl (Zofran Inj) 4 mg IV.PUSH Q6H PRN PRN Reason: NAUSEA Sodium Chloride (Ns Flush) 2 ml IV.FLUSH UNSCH PRN PRN Reason: FLUSH AFTER USING IV ACCESS Sodium Chloride (Ns Flush) 2 ml IV.FLUSH BID [facility] Last Admin: 02/18/18 10:49 Dose: Not Given Sodium Chloride (Ns Flush) 2 ml IV.FLUSH PRN PRN PRN Reason: FLUSH AFTER USING IV ACCESS Allergies Allergy/AdvReac Type Severity Reaction Status Date / Time No Known Allergies Allergy Uncoded 09/24/16 00:06 Home Medications Medication Instructions Recorded Confirmed Type baclofen 20 mg PO DAILY 02/18/18 02/18/18 History bethanechol chloride 25 mg PO TID 02/18/18 02/18/18 History diazepam 2 mg PO BID 02/18/18 02/18/18 History escitalopram oxalate 20 mg PO DAILY 02/18/18 02/18/18 History hydrochlorothiazide 25 mg PO DAILY 02/18/18 02/18/18 History lisinopril 20 mg PO DAILY 02/18/18 02/18/18 History pantoprazole 40 mg PO DAILY 02/18/18 02/18/18 History potassium chloride 10 meq PO DAILY 02/18/18 02/18/18 History pravastatin 40 mg PO DAILY 02/18/18 02/18/18 History ranitidine HCl 300 mg PO DAILY 02/18/18 02/18/18 History tamsulosin 0.4 mg PO DAILY 02/18/18 02/18/18 History Exam Vital signs: Vital Signs 02/18/18 05:19 02/18/18 05:32 02/18/18 05:34 Temperature 97.7 F Pulse Rate 114 H 112 H Respiratory Rate 18 16 16 Blood Pressure 167/79 H 117/51 L Pulse Oximetry 97 98 02/18/18 05:36 02/18/18 05:38 02/18/18 08:00 Temperature 97.8 F Pulse Rate 94 H Respiratory Rate 18 Blood Pressure 141/65 H 121/57 L Pulse Oximetry 98 97 02/18/18 08:20 Temperature Pulse Rate 88 Respiratory Rate 16 Blood Pressure 107/65 Pulse Oximetry 98 Intake & Output 02/17/18 02/18/18 02/18/18 18:59 06:59 18:59 Intake Total 250 / 250 1020 / 1020 Balance 250 / 250 1020 / 1020 Weight 68.3 kg Intake: IV 250 / 250 1020 / 1020 NS Inj 1,000 ML @ 84 mls/hr IV. 1020 / 1020 CONT .[id number] [facility] Rx#: [id number] NS Inj 250 ML @ Wide Open IV. 250 / 250 SIG BOLUS [facility] Rx#:[id number] Narrative: GENERAL: Well-developed, well-nourished, in no acute distress. alert and orientated HEENT: Head is normocephalic without any lesions or masses noted. Facial features are symmetric. Eyes: Pupils equal round reactive to light. Extraocular muscles are intact. Conjunctivae were clear. Oropharyngeal: Pharynx without any erythema edema. Tongue is midline without deviation. Buccal mucosa is moist without any masses or lesions NECK: Supple without any masses. Trachea midline no deviation. No JVD, no bruits are appreciated CARDIAC: Regular rhythm, regular rate. S1/S2 are heard. No murmurs gallops or rubs. LUNGS: Clear to auscultation bilaterally. No wheeze, rhonchi or rales. No use of accessory muscles on inspiration or expiration. ABDOMEN: Soft, nontender. Nondistended. Bowel sounds heard in all 4 quadrants. No organomegaly or masses. Negative rebound, negative guarding EXTREMITIES: No edema, pulses are equal bilaterally. No cyanosis or clubbing NEUROLOGY: Mood and affect appear appropriate. Cranial nerves II through XII grossly intact. Muscle strength 5/5 in upper and lower extremities bilaterally. Deep tendon reflexes are 2+ in upper and lower extremities bilaterally. LEFT LOWER EXTREMITY: Patient does have some mild excoriations noted with skin tears. Mild erythema noted surrounding the area. No exudates were appreciated. Results - Labs CBC & Chem 7: 02/18/18 05:36 02/18/18 05:36 Labs: Laboratory Results - last 24 hr 02/18/18 02/18/18 02/18/18 05:34 05:36 05:36 CBC w Diff Auto diff final WBC 8.3 RBC 4.15 Hgb 11.9 Hct 34.5 L MCV 83.3 MCH 28.8 MCHC 34.6 RDW 13.4 Plt Count 419 MPV 9.6 Neut % (Auto) 72.9 H Lymph % (Auto) 22.2 [place] % (Auto) 4.1 Eos % (Auto) 0.3 Baso % (Auto) 0.5 Neut # (Auto) 6.1 Lymph # (Auto) 1.9 [place] # (Auto) 0.3 Eos # (Auto) 0.0 Baso # (Auto) 0.0 WBC Differential . Differential Comment . PT INR APTT Sodium Potassium Chloride Carbon Dioxide Anion Gap BUN Creatinine Estimated GFR POC Glucose 175 H Random Glucose Calcium Magnesium Total Bilirubin AST ALT Alkaline Phosphatase Total Creatine Kinase Troponin I Total Protein Albumin Lipase 230 Ur Collection Type Urine Color Urine Clarity Urine pH Ur Specific [place] Urine Protein Urine Glucose (UA) Urine Ketones Urine Occult Blood Urine Nitrate Urine Bilirubin Urine Urobilinogen Ur Leukocyte Esterase Urine WBC Urine WBC Clumps Ur Squamous Epith Cells Urine Bacteria Micro UA Comment Ur Microscopic Review Urine Culture Comments 02/18/18 02/18/18 02/18/18 05:36 05:36 07:26 CBC w Diff WBC RBC Hgb Hct MCV MCH MCHC RDW Plt Count MPV Neut % (Auto) Lymph % (Auto) [place] % (Auto) Eos % (Auto) Baso % (Auto) Neut # (Auto) Lymph # (Auto) [place] # (Auto) Eos # (Auto) Baso # (Auto) WBC Differential Differential Comment PT 10.0 INR 1.0 APTT 23.6 L Sodium 134 L Potassium 3.9 Chloride 99 Carbon Dioxide 24.2 Anion Gap 11 BUN 30 H Creatinine 1.20 H Estimated GFR 43 L POC Glucose Random Glucose 172 H Calcium 8.8 Magnesium 1.9 Total Bilirubin 0.3 AST 30 ALT 34 Alkaline Phosphatase 63 Total Creatine Kinase 58 Troponin I Less than 0.02 L Total Protein 7.9 Albumin 3.5 Lipase Ur Collection Type Clean catch Urine Color Yellow Urine Clarity Clear Urine pH 6.0 Ur Specific [place] 1.020 Urine Protein Negative Urine Glucose (UA) 500 H Urine Ketones Negative Urine Occult Blood Negative Urine Nitrate Negative Urine Bilirubin Negative Urine Urobilinogen 0.2 Ur Leukocyte Esterase Moderate H Urine WBC 51-189 H Urine WBC Clumps Few H Ur Squamous Epith Cells Greater than 10 H Urine Bacteria Moderate H Micro UA Comment Culture indicated Ur Microscopic Review Microscopic reviewed Urine Culture Comments Culture indicated 02/18/18 09:00 CBC w Diff WBC RBC Hgb Hct MCV MCH MCHC RDW Plt Count MPV Neut % (Auto) Lymph % (Auto) [place] % (Auto) Eos % (Auto) Baso % (Auto) Neut # (Auto) Lymph # (Auto) [place] # (Auto) Eos # (Auto) Baso # (Auto) WBC Differential Differential Comment PT INR APTT Sodium Potassium Chloride Carbon Dioxide Anion Gap BUN Creatinine Estimated GFR POC Glucose Random Glucose Calcium Magnesium Total Bilirubin AST ALT Alkaline Phosphatase Total Creatine Kinase 53 Troponin I Less than 0.02 L Total Protein Albumin Lipase Ur Collection Type Urine Color Urine Clarity Urine pH Ur Specific [place] Urine Protein Urine Glucose (UA) Urine Ketones Urine Occult Blood Urine Nitrate Urine Bilirubin Urine Urobilinogen Ur Leukocyte Esterase Urine WBC Urine WBC Clumps Ur Squamous Epith Cells Urine Bacteria Micro UA Comment Ur Microscopic Review Urine Culture Comments - Imaging Impressions Chest X-Ray 02/18/18 05:32 CONCLUSION: No infiltrates seen. Head CT 02/18/18 05:35 CONCLUSION: 1. No acute findings in the brain. 2. Small air-fluid levels in both maxillary sinuses suggests sinusitis. . Abdomen/Pelvis CT 02/18/18 06:46 CONCLUSION: 1. Diverticulosis without diverticulitis. 2. Atherosclerosis. 3. Scoliosis and degenerative changes. Caprini VTE Risk Assessment Caprini VTE Risk Assessment: No/Low Risk (score <= 1) Caprini Risk Assessment Model: Point Value = 1 Point Value = 2 Point Value = 3 Point Value = 5 Age 41-60 Minor surgery BMI > 25 kg/m2 Swollen legs Varicose veins or History of unexplained or recurrent spontaneous Oral contraceptives or hormone replacement Sepsis (< 1 month) Serious lung disease, including pneumonia (< 1 month) Abnormal pulmonary function Acute myocardial infarction Congestive heart failure (< 1 month) History of inflammatory bowel disease Medical patient at bed rest Age 61-74 Arthroscopic surgery Major open surgery (> 45 min) Laparoscopic surgery (> 45 min) Malignancy Confined to bed (> 72 hours) Immobilizing plaster cast Central venous access Age >= 75 History of VTE Family history of VTE Factor V Leiden Prothrombin [id number] Lupus anticoagulant Anticardiolipin antibodies Elevated serum homocysteine Heparin-induced thrombocytopenia Other congenital or acquired thrombophilia Stroke (< 1 month) Elective arthroplasty Hip, pelvis, or leg fracture Acute spinal cord injury (< 1 month) Prophylaxis Regimen: Total Risk Factor Score Risk Level Prophylaxis Regimen 0-1 Low Early ambulation 2 Moderate Order ONE of the following: *Sequential Compression Device (SCD) *Heparin 5000 units SQ BID 3-4 Higher Order ONE of the following medications: *Heparin 5000 units SQ TID *Enoxaparin/Lovenox 40 mg SQ daily (WT < 150 kg, CrCl > 30 mL/min) *Enoxaparin/Lovenox 30 mg SQ daily (WT < 150 kg, CrCl > 10-29 mL/min) *Enoxaparin/Lovenox 30 mg SQ BID (WT < 150 kg, CrCl > 30 mL/min) AND/OR *Sequential Compression Device (SCD) 5 or more Highest Order ONE of the following medications: *Heparin 5000 units SQ TID (Preferred with Epidurals) *Enoxaparin/Lovenox 40 mg SQ daily (WT < 150 kg, CrCl > 30 mL/min) *Enoxaparin/Lovenox 30 mg SQ daily (WT < 150 kg, CrCl > 10-29 mL/min) *Enoxaparin/Lovenox 30 mg SQ BID (WT < 150 kg, CrCl > 30 mL/min) AND *Sequential Compression Device (SCD) Assessment and Plan - Assessment (1) Nausea Code(s): R11.0 - Nausea Status: Acute (2) Chest pain Code(s): R07.9 - Chest pain, unspecified Status: Acute - Plan Chest pressure, atypical -Patient with increased risk factors include age, hypertension, hyperlipidemia, diabetes -Patient has been ruled out for acute coronary event with serial cardiac enzymes that are negative -Serial EKGs were reviewed by myself which does show sinus rhythm with first- degree AV block which is unchanged from previous -Myocardial perfusion study was performed and indicated normal exam, no signs of ischemia, ejection fraction greater than 70%, low risk -Continue aspirin, nitroglycerin as needed -Continue monitor telemetry Nausea -Could be a component of coronary variant versus dyspepsia, gastritis -Zofran as needed Left lower extremity excoriations -Mild erythema noted around skin tear on left lower extremity. Does appear to have improved since marking of the area this morning -Patient just went to senior inspector yesterday who started her on oral antibiotics Hypertension, hyper lipidemia -Continue home medications Diabetes -Accu-Cheks with sliding scale insulin DVT prevention -Sequential compression devices Discharge Planning: Discharge home in stable condition Activity: Ad golden. Diet: Healthy heart diet Medication per medication reconciliation Follow-up with primary medical doctor in 1 week (2) Chest pain Qualifiers: Chest pain type: precordial pain Qualified Code(s): R07.2 - Precordial pain
[2018-02-18 11:56] VITALS: BP 109/61; PULSE 91; RESP 18; TEMP 97.5
[2018-02-18] MEDS ORDERED: Regadenoson Inj 0.4 MG/5 ML Syringe IV.PUSH ONE (12:35)
--- NOTE | 2018-02-18 13:45 | NM ---
EXAM DATE: 02/18/2018 1:34 PM EDT AGE/SEX: 77 years / Female INDICATIONS:Angina. . Chest pain. CLINICAL DATA: This is the patient's initial encounter. Patient reports that signs and symptoms have been present for 1 day and indicates a pain score of 7/10. MEDICAL/SURGICAL HISTORY: Diabetes mellitus type II. Hypertension. Hypercholesterolemia. Hyst erectomy. COMPARISON: No prior exams available for comparison. DOSE: 8.2 mCi Tc 99m Myoview at rest 25.3 mCi [id number] at stress 0.4 mg Lexiscan STRESS SYMPTOMS: Short of breath. EJECTION FRACTION: >70 % TECHNIQUE: The patient underwent pharmacologic stress with infusion of prescribed dose. Continuous ECG tracing was monitored during stress. Gated SPECT imaging was performed after stress and conventi onal SPECT imaging was performed at rest. The examination was performed on a SPECT/CT scanner, both attenuation and non-corrected datasets were reviewed. FINDINGS: Distribution: The maximum perfused segment at stress is in the septal wall. Perfusion Study: The pattern of perfusion at stress is within normal limits. Gated Study: There are intact wall motion and wall thickening without hypokinetic or dyskinetic segm ents. The ejection fraction is calculated at >70%. RISK CATEGORY: Low (<1% Annual Motality Rate) CONCLUSION: 1. No reversibility identified to suggest ischemia. Electronically signed by: Osiel Soni MD 02/18/2018 1:43 PM EDT
--- NOTE | 2018-02-18 14:49 | TR ---
Date Performed: 02/18/2018 Time Performed: 12:53:59 DOCTOR: David Lynch DRUG LIST: CLINICAL HISTORY: REASON FOR TEST: REASON FOR ENDING: OBSERVATION: CONCLUSION: COMMENTS: Lexiscan stress test was performed under standard four minute protocol. Radionuclide was injected one minute prior to ending the test. No electrocardiographic abormalities were present t o suggest ischemia. Nuclear imaging and interpretation are pending.
--- NOTE | 2018-02-21 17:49 | ECG ---
Date Performed: 02/18/2018 Time Performed: 09:10:03 PTAGE: 77 years EKG: Sinus rhythm WITH FIRST DEGREE AV BLOCK POSSIBLE LEFT ATRIAL ENLARGEMENT POSSIBLE INFERIOR MYOCARDIAL INFARCTION ABNORMAL ECG PREVIOUS TRACING : 02/18/2018 05.30 Since the previous tracing, no significant change noted DOCTOR: David Lynch Interpretating Date/Time 02/21/2018 17:49:08
--- NOTE | 2018-02-21 17:49 | ECG ---
Date Performed: 02/18/2018 Time Performed: 05:30:40 PTAGE: 77 years EKG: SINUS TACHYCARDIA POSSIBLE LEFT ATRIAL ENLARGEMENT INFERIOR MYOCARDIAL INFARCTION ABNORMAL ECG PREVIOUS TRACING : 10/12/2008 14.58 Since the previous tracing, no significant change noted DOCTOR: David Lynch Interpretating Date/Time 02/21/2018 17:49:20
== END 2018-02-18 15:57 | disposition home or self-care (01) ==
LOC: PHED 05:17 → PHEDA 05:17 → PH3 08:20
PROVIDERS: ADMIT Internal Medicine; ATTEND Internal Medicine